=== PATIENT | male | born 1965 | race American Indian/Alaskan Native ===

== ENCOUNTER 2016-12-21 00:46 | Emergency (ER) | payer SELFPAY ==
--- NOTE | 2016-12-21 02:43 | XRay Report ---
FINAL REPORT PROCEDURE: XR ANKLE 3 LT TECHNIQUE: LEFT ankle radiographs, AP, lateral, and oblique views. CPT 44609 HISTORY: swelling and lt ankle pain COMPARISON: No prior studies are available for comparison. FINDINGS: Fracture (s) and/or Dislocation(s): No acute fracture is seen. There is well corticated osseous densities off the medial malleolus, previous avulsion fracture in this region is suspected.. Alignment: Normal. Joint space(s): Mild narrowing of the joint spaces. Soft tissues: Significant diffuse soft tissue swelling. Bone mineralization: Normal. Foreign bodies: None. Calcaneal spurring: None. IMPRESSION: No acute fracture. Moderate arthritis. Significant diffuse soft tissue swelling..
[2016-12-21] MEDS ORDERED: TYLENOL PO ONE (08:16)
--- NOTE | 2016-12-21 08:16 | Emergency Department Report ---
ED Lower Extremity HPI - General Chief Complaint: Extremity Injury, Lower Stated Complaint: LEFT ANKLE PAIN/POSS BLOOD CLOT/CANCER PT Time Seen by Provider: 12/21/16 07:08 Source: patient Mode of arrival: Ambulatory Limitations: No Limitations - History of Present Illness Initial Comments: This is a 51-year-old male well-nourished with nontoxic or ill in appearance that presents with pain to the left ankle x1 day. Patient stated has a history of bilateral foot and ankle swelling for the past 4-5 years. Patient denies any trauma to the area. Patient stated it comes in today due to the pain which was unrelieved by [id number] medication. Patient recently had a primary care doctor that he follows up with Yoseph Carrillo. He also stated Dr. Ag is aware of his blood pressure and is following up with him with diet. Patient denies any trauma to the foot/ankle. Patient denies any chest pain, shortness of breath, numbness or tingling sensation, recent travels, denies calf tenderness or pain, or swelling, denies recent travels. Patient denies headache, blurred vision, or visual changes. He denies any headache or blurry vision. Patient has allergies to aspirin and seafood. MD Complaint: ankle injury -: Gradual, days(s) (1) Injury: Ankle: Right Severity: mild Severity scale (0 -10): 7 Associated Symptoms: ambulatory. denies: snap/pop sensation, swelling, numbness , tingling, unable to bear weight, able to partially bear weight - Related Data Previous Rx's Medication Instructions Recorded Last Taken Type Dicyclomine [Bentyl] 20 mg PO Q8HR PRN #15 tablet 07/21/16 Unknown Rx Mag Hydrox/Al Hydrox/Simeth 10 ml PO Q8HR PRN #355 ml 07/21/16 Unknown Rx [Maalox Advanced Suspension] Pantoprazole [Protonix TAB] 40 mg PO QDAY #14 tablet 07/29/16 Unknown Rx Sucralfate [Carafate] 1 gm PO ACHS #30 oral.liqd 07/29/16 Unknown Rx Acetaminophen [Acetaminophen ER 650 mg PO Q8HR PRN #12 tablet.er 12/21/16 Unknown Rx TAB] Allergies Allergy/AdvReac Type Severity Reaction Status Date / Time aspirin Allergy Unknown Verified 01/30/16 15:10 seafood Allergy Anaphylaxis Uncoded 01/30/16 15:10 ED Review of Systems ROS: Stated complaint: LEFT ANKLE PAIN/POSS BLOOD CLOT/CANCER PT Other details as noted in HPI Constitutional: denies: chills, fever Eyes: denies: eye pain, eye discharge, vision change ENT: denies: ear pain, throat pain Respiratory: denies: cough, shortness of breath, wheezing Cardiovascular: denies: chest pain, palpitations Endocrine: no symptoms reported Gastrointestinal: denies: abdominal pain, nausea, diarrhea Genitourinary: denies: urgency, dysuria Musculoskeletal: denies: back pain, joint swelling, arthralgia Skin: denies: rash, lesions Neurological: denies: headache, weakness, paresthesias Psychiatric: denies: anxiety, depression Hematological/Lymphatic: denies: easy bleeding, easy bruising ED Past Medical Hx - Past Medical History Hx Hypertension: Yes (does not take meds due to massive weight loss) Hx Congestive Heart Failure: No Hx Diabetes: No Hx Asthma: No - Surgical History Past Surgical History?: Yes Additional Surgical History: right shoulder reconstruction. knee arthroscopy - Social History Smoking Status: Never Smoker Substance Use Type: None - Medications Home Medications: Home Medications Medication Instructions Recorded Confirmed Last Taken Type Dicyclomine [Bentyl] 20 mg PO Q8HR PRN #15 tablet 07/21/16 07/23/16 Unknown Rx Mag Hydrox/Al Hydrox/Simeth 10 ml PO Q8HR PRN #355 ml 07/21/16 07/23/16 Unknown Rx [Maalox Advanced Suspension] Pantoprazole [Protonix TAB] 40 mg PO QDAY #14 tablet 07/29/16 Unknown Rx Sucralfate [Carafate] 1 gm PO ACHS #30 oral.liqd 07/29/16 Unknown Rx Acetaminophen [Acetaminophen ER 650 mg PO Q8HR PRN #12 tablet.er 12/21/16 Unknown Rx TAB] ED Physical Exam - General Limitations: No Limitations General appearance: alert, in no apparent distress - Head Head exam: Present: atraumatic, normocephalic - Eye Eye exam: Present: normal appearance - ENT ENT exam: Present: normal exam, normal orophraynx, mucous membranes moist, TM's normal bilaterally, normal external ear exam - Neck Neck exam: Present: normal inspection, full ROM. Absent: tenderness, meningismus, lymphadenopathy, thyromegaly - Respiratory Respiratory exam: Present: normal lung sounds bilaterally. Absent: respiratory distress, wheezes, rales, rhonchi, stridor, chest wall tenderness, accessory muscle use, decreased breath sounds, prolonged expiratory - Cardiovascular Cardiovascular Exam: Present: regular rate, normal rhythm. Absent: systolic murmur, diastolic murmur, rubs, gallop - GI/Abdominal GI/Abdominal exam: Present: soft, normal bowel sounds. Absent: distended, tenderness, guarding, rebound, rigid - Rectal Rectal exam: Present: deferred - Extremities Exam Extremities exam: Present: normal inspection, full ROM, normal capillary refill. Absent: tenderness, pedal edema, joint swelling, calf tenderness - Expanded Lower Extremity Exam Right Hip exam: Present: normal inspection, full ROM. Absent: tenderness, swelling Upper Leg exam: Present: normal inspection, full ROM. Absent: tenderness, swelling Knee exam: Present: normal inspection, full ROM, full knee extension. Absent: tenderness, swelling, dislocation, erythema, effusion, pain w/ pronation/ supination, posterior draw sign Lower Leg exam: Present: normal inspection, full ROM. Absent: tenderness, swelling Ankle exam: Present: normal inspection, full ROM, swelling (lateral ankle). Absent: tenderness, abrasion, laceration, ecchymosis, deformity, crepidus, dislocation, erythema, anterior draw sign Foot/Toe exam: Present: normal inspection, full ROM, swelling (anterior foot). Absent: tenderness, abrasion, laceration, ecchymosis, deformity, crepidus Neuro vascular tendon exam: Present: no vascular compromise Gait: Positive: observed and normal 1 - swelling 1 - swelling - Back Exam Back exam: Present: normal inspection, full ROM. Absent: tenderness, CVA tenderness (R), CVA tenderness (L), muscle spasm, paraspinal tenderness, vertebral tenderness, rash noted - Neurological Exam Neurological exam: Present: alert, oriented X3, CN II-XII intact, normal gait - Psychiatric Psychiatric exam: Present: normal affect, normal mood - Skin Skin exam: Present: warm, dry, intact, normal color. Absent: rash - Other Other exam information: Normal pulses in lower extremities bilaterally. ED Course Vital Signs 12/21/16 12/21/16 01:42 08:25 Temperature 98.3 F 98 F Pulse Rate 87 73 Respiratory 16 18 Rate Blood Pressure 160/108 Blood Pressure 189/115 [Left] O2 Sat by Pulse 100 99 Oximetry ED Lower Extremity MDM - Medical Decision Making Ed course: This is a 51-year-old male that presents with left ankle pain and swelling 1- x-ray of the left ankle has been obtained and dictated by Dr. Luu. Impression; no acute fracture. Moderate arthritis. Significant diffuse soft tissue swelling. 2- x-ray has been notified of the results to the patient. Patient has no further questions by the x-ray. Patient stated will follow-up with her orthopedic doctor as directed. 3- patient received acetaminophen 650 mg mg in ED. Patient also received Catapres 0.2 mg in ED for elevated blood pressure. Patient was instructed to follow-up with his primary care doctor/leather dresser for his blood pressure possibility of medication. 4- patient was instructed to follow-up with her primary care doctor/orthopedic doctor if symptoms continue or worsen. 5- patient was instructed to rest, ice, compress and elevate extremity. 6- Gerson wrap has been applied in ED the left foot/ankle. 7- patient was given acetaminophen 650 mg at the time of discharge and was instructed to take as prescribed as needed for pain. 8- at time time of discharge, the patient does not seem toxic or ill in appearance. No acute signs of distress noted. Patient agrees to discharge treatment plan of care. No further questions noted by the patient. Critical care attestation.: If time is entered above; I have spent that time in minutes in the direct care of this critically ill patient, excluding procedure time. ED Disposition Clinical Impression: Ankle arthritis Left ankle strain Qualifiers: Encounter type: initial encounter Qualified Code(s): S96.912A - Strain of unspecified muscle and tendon at ankle and foot level, left foot, initial encounter Disposition: DISCHARGED TO HOME OR SELFCARE Is pt being admited?: No Does the pt Need Aspirin: No Condition: Stable Instructions: Acetaminophen (By mouth), Ankle Exercises (GEN), RICE Therapy (ED ) Additional Instructions: Follow-up with her primary care doctor/orthopedic doctor in 3-5 days or if symptoms worsen such as increased swelling with pain, numbness or tingling, chest pain, shortness of breath, or nausea or vomiting reported back to emergency room. Take acetaminophen as prescribed as needed for pain. Follow-up with her primary care doctor and/or leather dresser EDU due to elevation of blood pressure. You may need to be prescribed medication to lower your blood pressure. Prescriptions: Acetaminophen [Acetaminophen ER TAB] 650 mg PO Q8HR PRN #12 tablet.er PRN Reason: Pain Referrals: [facility] [Outside] - 3-5 Days YOSEPH AG MD [Primary Care Provider] - 3-5 Days EVELIN CRUZ MD [Staff Physician] - 3-5 Days DELANEY JORGE MD [Staff Physician] - EDU [facility] [Outside] - EDU Forms: Work/School Release Form(ED)
[2016-12-21] MEDS ORDERED: CATAPRES PO ONE (08:27)
[2016-12-21 09:03] VITALS: BP 156/98
== END 2016-12-21 09:09 | disposition home or self-care (01) ==
LOC: ED 00:46
DX: S96.912A Strain of unspecified muscle and tendon at ankle and foot level, left foot, initial encounter (principal); M19.072 Primary osteoarthritis, left ankle and foot; I10 Essential (primary) hypertension; Z88.6 Allergy status to analgesic agent; Z91.013 Allergy to seafood; X58.XXXA Exposure to other specified factors, initial encounter; Y93.89 Activity, other specified; Y99.8 Other external cause status; Y92.89 Other specified places as the place of occurrence of the external cause
CPT/HCPCS: 99283

== ENCOUNTER 2017-07-27 19:31 | Emergency (ER) | payer MEDICAID, OTHER ==
[2017-07-27 20:56] LABS: Basophils % (Auto) 0.4 % (0.0-1.8); Eosinophils # (Auto) 0.1 K/mm3 (0.0-0.4); Hematocrit 37.3 % (35.5-45.6); Hemoglobin 12.4 gm/dl (11.8-15.2); Lymphocytes # (Auto) 0.3 K/mm3 (1.2-5.4); Lymphocytes % (Auto) 4.1 % (13.4-35.0); Mean Corpuscular HGB Conc 33 % (32-34); Mean Corpuscular Hemoglobin 31 pg (28-32); Mean Corpuscular Volume 93 fl (84-94); Monocytes # (Auto) 0.8 K/mm3 (0.0-0.8); Monocytes % (Auto) 11.9 % (0.0-7.3); Platelet Count 217 K/mm3 (140-440); Red Blood Count 4.01 M/mm3 (3.65-5.03); Red Cell Distribution Width 13.7 % (13.2-15.2)
[2017-07-27 21:10] LABS: BUN/Creatinine Ratio 15; Blood Urea Nitrogen 17 mg/dL (9-20); Calcium 8.5 mg/dL (8.4-10.2); Hemolysis Index 11
--- NOTE | 2017-07-27 21:53 | XRay Report ---
FINAL REPORT PROCEDURE: XR CHEST ROUTINE 2V TECHNIQUE: PA and lateral chest radiographs were obtained. CPT 05725 HISTORY: Shortness of breath COMPARISON: No prior studies are available for comparison. FINDINGS: Heart: Normal. Mediastinum/Vessels: Normal. Lungs/Pleural space: There is left pleural effusion and patchy left lower lobe atelectasis or infiltrate.. Bony thorax: No acute osseous abnormality. Other: Right MediPort catheter tip is in the superior vena cava IMPRESSION: There is left pleural effusion and left lower lobe atelectasis or infiltrate.
[2017-07-28 09:27] VITALS: BP 121/80
[2017-07-28] MEDS ORDERED: XYLOCAINE 1% MPF 5 mL INFILTRATI ONE (10:19)
[2017-07-28] MEDS ORDERED: ROCEPHIN IM ONE (10:19)
--- NOTE | 2017-07-28 10:24 | Emergency Department Report ---
ED Shortness of Breath HPI - General Chief Complaint: Dyspnea/Respdistress Stated Complaint: SOB Time Seen by Provider: 07/28/17 10:11 Source: patient Mode of arrival: Ambulatory Limitations: No Limitations - History of Present Illness Initial Comments: Patient is 51 years old male history of hypertension and gastric cancer and he is on radiation therapy. He presented to the ER with 2 day history of cough, chills and shortness of breath. Patient denied any nausea vomiting or diarrhea. No chest pain. Patient stated that he finished chemotherapy. No other complaint at this moment. MD Complaint: shortness of breath, cough -: Last night Severity: moderate Associated Symptoms: cough, sputum production - Related Data Previous Rx's Medication Instructions Recorded Last Taken Type Dicyclomine [Bentyl] 20 mg PO Q8HR PRN #15 tablet 07/21/16 Unknown Rx Mag Hydrox/Aluminum Hyd/Simeth 10 ml PO Q8HR PRN #355 ml 07/21/16 Unknown Rx [Maalox Advanced Suspension] Pantoprazole [Protonix TAB] 40 mg PO QDAY #14 tablet 07/29/16 Unknown Rx Sucralfate [Carafate] 1 gm PO ACHS #30 oral.liqd 07/29/16 Unknown Rx Acetaminophen [Acetaminophen ER 650 mg PO Q8HR PRN #12 tablet.er 12/21/16 Unknown Rx TAB] Azithromycin [Zithromax Z-NIDA] 250 mg PO DAILY 1 Days tab 07/28/17 Unknown Rx Ondansetron [Zofran Odt] 4 mg PO Q8HR PRN #14 tab.rapdis 07/28/17 Unknown Rx Allergies Allergy/AdvReac Type Severity Reaction Status Date / Time aspirin Allergy Unknown Verified 01/30/16 15:10 seafood Allergy Anaphylaxis Uncoded 01/30/16 15:10 ED Review of Systems ROS: Stated complaint: SOB Other details as noted in HPI Comment: All other systems reviewed and negative Constitutional: chills. denies: fever Respiratory: cough, shortness of breath. denies: SOB with exertion, SOB at rest , wheezing Cardiovascular: denies: chest pain, palpitations, dyspnea on exertion Gastrointestinal: denies: abdominal pain, nausea, vomiting, diarrhea, constipation, hematemesis, melena, hematochezia Genitourinary: denies: urgency, dysuria, frequency, hematuria, testicular pain, testicular mass Musculoskeletal: denies: back pain Skin: denies: rash, lesions Neurological: denies: headache, weakness, numbness, paresthesias ED Past Medical Hx - Past Medical History Hx Hypertension: Yes (does not take meds due to massive weight loss) Hx Congestive Heart Failure: No Hx Diabetes: No Hx of Cancer: Yes (gastric, dx 06/2016) Hx Asthma: No - Surgical History Additional Surgical History: right shoulder reconstruction. knee arthroscopy. stomach surgery for ca-12/2016 - Social History Smoking Status: Never Smoker Substance Use Type: None - Medications Home Medications: Home Medications Medication Instructions Recorded Confirmed Last Taken Type Dicyclomine [Bentyl] 20 mg PO Q8HR PRN #15 tablet 07/21/16 07/23/16 Unknown Rx Mag Hydrox/Aluminum Hyd/Simeth 10 ml PO Q8HR PRN #355 ml 07/21/16 07/23/16 Unknown Rx [Maalox Advanced Suspension] Pantoprazole [Protonix TAB] 40 mg PO QDAY #14 tablet 07/29/16 Unknown Rx Sucralfate [Carafate] 1 gm PO ACHS #30 oral.liqd 07/29/16 Unknown Rx Acetaminophen [Acetaminophen ER 650 mg PO Q8HR PRN #12 tablet.er 12/21/16 Unknown Rx TAB] Azithromycin [Zithromax Z-NIDA] 250 mg PO DAILY 1 Days tab 07/28/17 Unknown Rx Ondansetron [Zofran Odt] 4 mg PO Q8HR PRN #14 tab.rapdis 07/28/17 Unknown Rx ED Physical Exam - General Limitations: No Limitations General appearance: alert, in no apparent distress, other (patient is sleeping comfortably, easily arousable, in no acute distress.) - Head Head exam: Present: atraumatic, normocephalic, normal inspection - Eye Eye exam: Present: normal appearance, PERRL. Absent: EOMI Pupils: Present: normal accommodation - ENT ENT exam: Present: normal exam, normal orophraynx, mucous membranes moist - Neck Neck exam: Present: normal inspection, full ROM. Absent: tenderness, meningismus, lymphadenopathy, thyromegaly - Respiratory Respiratory exam: Present: normal lung sounds bilaterally, decreased breath sounds (left lower lobe). Absent: wheezes, rales, rhonchi, stridor, prolonged expiratory - Cardiovascular Cardiovascular Exam: Present: regular rate, normal rhythm, normal heart sounds - GI/Abdominal GI/Abdominal exam: Present: soft, normal bowel sounds. Absent: distended, tenderness, guarding, rebound, rigid, organomegaly, mass, bruit, pulsatile mass , hernia - Extremities Exam Extremities exam: Present: normal inspection, full ROM, normal capillary refill - Back Exam Back exam: Present: normal inspection, full ROM. Absent: tenderness, CVA tenderness (R), CVA tenderness (L), muscle spasm, paraspinal tenderness, vertebral tenderness - Neurological Exam Neurological exam: Present: alert, oriented X3, CN II-XII intact, normal gait. Absent: abnormal gait, motor sensory deficit, reflexes normal - Psychiatric Psychiatric exam: Present: normal affect, normal mood - Skin Skin exam: Present: warm, intact, normal color. Absent: cyanosis ED Course Vital Signs 07/27/17 07/28/17 07/28/17 20:28 03:53 09:25 Temperature 98.6 F 98.3 F Pulse Rate 89 90 71 Respiratory 16 20 16 Rate Blood Pressure 115/78 117/76 Blood Pressure 121/80 [Right] O2 Sat by Pulse 98 97 97 Oximetry 07/28/17 09:58 Temperature Pulse Rate Respiratory 20 Rate Blood Pressure Blood Pressure [Right] O2 Sat by Pulse Oximetry ED Medical Decision Making - Lab Data Result diagrams: 07/27/17 Unknown 07/27/17 20:34 - EKG Data -: EKG Interpreted by Nv EKG shows normal: sinus rhythm Rate: normal - EKG Data When compared to previous EKG there are: no significant change Interpretation: no acute changes - Radiology Data Radiology results: report reviewed Referring Physician: ED DOC Patient Name: DANIEL PISANO Date of : 1965 Sex: Male Report Date: 2017-07-27 Report Status: Finalized Findings [facility] [address] [place] [address] XRay Report Signed Patient: DANIEL PISANO MR#: [id number] : 1965 Acct:[id number] Age/Sex: 51 / M ADM Date: 07/27/17 Loc: ED Attending Dr: Ordering Physician: ED MD GLADYS Date of Service: 07/27/17 Procedure(s): XR chest routine 2V Accession Number(s): [id number] cc: ED DOC, Fluoro Time In Minutes: FINAL REPORT PROCEDURE: XR CHEST ROUTINE 2V TECHNIQUE: PA and lateral chest radiographs were obtained. CPT 40391 HISTORY: Shortness of breath COMPARISON: No prior studies are available for comparison. FINDINGS: Heart: Normal. Mediastinum/Vessels: Normal. Lungs/Pleural space: There is left pleural effusion and patchy left lower lobe atelectasis or infiltrate.. Bony thorax: No acute osseous abnormality. Other: Right MediPort catheter tip is in the superior vena cava IMPRESSION: There is left pleural effusion and left lower lobe atelectasis or infiltrate. Transcribed By: [facility] Dictated By: CHERELLE CROW M.D. Electronically Authenticated By: CHERELLE CROW M.D. Signed Date/Time: 07/27/171749 DD/ 49 TD/TT: 07/27/171749 Critical care attestation.: If time is entered above; I have spent that time in minutes in the direct care of this critically ill patient, excluding procedure time. ED Disposition Clinical Impression: Pneumonia, Shortness of breath Disposition: DC-01 TO HOME OR SELFCARE Is pt being admited?: No Condition: Stable Instructions: Community-acquired Pneumonia (ED) Prescriptions: Azithromycin [Zithromax Z-NIDA] 250 mg PO DAILY 1 Days tab Ondansetron [Zofran Odt] 4 mg PO Q8HR PRN #14 tab.rapdis PRN Reason: Nausea And Vomiting Referrals: PRIMARY CARE, [Primary Care Provider] - 3-5 Days
== END 2017-07-28 11:15 | disposition home or self-care (01) ==
LOC: ED 19:31
DX: R06.02 Shortness of breath (principal); Z53.21 Procedure and treatment not carried out due to patient leaving prior to being seen by health care provider
CPT/HCPCS: 36415; 71020; 80048; 85025; 93005; 93010; J0696